=== PATIENT | female | born 1955 | race Two or more races ===

== ENCOUNTER 2022-05-31 14:08 | Emergency (ER) | payer OTHER, MEDICAID ==
[~2022-05-31] VITALS: Ht 152.4 cm; Wt 81.8 kg
[2022-05-31 14:09] VITALS: BP 132/86
[2022-05-31] MEDS ORDERED: NEOM0.1O7 OP (17:48)
== END 2022-05-31 19:12 | disposition home or self-care (01) ==
LOC: ER 14:14
DX: H00.015 Hordeolum externum left lower eyelid (principal)

== ENCOUNTER → 2022-08-03 | Outpatient (CLI) | payer OTHER, MEDICAID ==
[~2022-08-03] MED LIST: NEOM0.1O7 OP
== END | disposition home or self-care (01) ==
LOC: XYW 09:13
PROVIDERS: ATTEND Student in an Organized Health Care Education/Training Program
DX: L60.0 Ingrowing nail (principal)
CPT/HCPCS: 93925

== ENCOUNTER 2022-10-18 20:45 | Emergency (ER) | payer OTHER, MEDICAID ==
[~2022-10-18] VITALS: Ht 144.8 cm; Wt 80.0 kg
[2022-10-18] MEDS ORDERED: ACET-1158 PO (22:45)
[2022-10-18] MEDS ORDERED: AZIT250T9 PO (22:45)
[2022-10-18] MEDS ORDERED: PRED20TA2 PO (22:45)
[2022-10-18 23:45] VITALS: BP 137/78
== END 2022-10-18 23:45 | disposition home or self-care (01) ==
LOC: ER 20:45
DX: J06.9 Acute upper respiratory infection, unspecified (principal); E78.5 Hyperlipidemia, unspecified; I10 Essential (primary) hypertension; Z20.822 Contact with and (suspected) exposure to COVID-19
CPT/HCPCS: 36415; 71045; 87426; 87804

== ENCOUNTER 2023-05-03 17:02 | Emergency (ER) | payer OTHER, MEDICAID ==
[~2023-05-03] VITALS: Ht 149.9 cm; Wt 80.9 kg
[~2023-05-03 17:02] MED LIST changes: +ACET500T58 PO; +AZIT-43 PO; +PRED20TA2 PO
[2023-05-03 17:18] VITALS: BP 115/49; PULSE 67; RESP 20; TEMP 98.5
[2023-05-03] MEDS ORDERED: ACET500T58 PO (20:37)
[2023-05-03] MEDS ORDERED: AMOX875T4 PO (20:37)
[2023-05-03 20:41] VITALS: O2SAT 96
[2023-05-03] MEDS ORDERED: cefTRIAXone SOD 1,000 MG VL IM ONE (20:45)
[2023-05-03] MEDS ORDERED: ACETAMINOPHEN 325 MG TAB PO ONE (20:45)
== END 2023-05-03 21:49 | disposition home or self-care (01) ==
LOC: ER 17:02
DX: L60.0 Ingrowing nail (principal); I10 Essential (primary) hypertension; E78.5 Hyperlipidemia, unspecified; Z98.890 Other specified postprocedural states; Z79.899 Other long term (current) drug therapy
CPT/HCPCS: 96372; 99283; J0696

== ENCOUNTER 2024-04-13 12:38 | Emergency (ER) | payer OTHER, MEDICAID ==
[~2024-04-13] VITALS: Ht 157.5 cm; Wt 81.6 kg
[~2024-04-13 12:38] MED LIST changes: +AMOX875T4 PO
[2024-04-13 14:53] VITALS: BP 137/79; PULSE 72; RESP 15; TEMP 98.1; O2SAT 96
[2024-04-13] MEDS: ACETAMINOPHEN 500 MG TAB PO ONE (15:01)
[2024-04-13] MEDS ORDERED: ACET-1080 PO (15:02)
== END 2024-04-13 15:22 | disposition home or self-care (01) ==
LOC: ER 12:38
DX: S00.531A Contusion of lip, initial encounter (principal); I10 Essential (primary) hypertension; E78.5 Hyperlipidemia, unspecified; Z98.890 Other specified postprocedural states; Z79.899 Other long term (current) drug therapy; W22.8XXA Striking against or struck by other objects, initial encounter; Y93.89 Activity, other specified; Y92.098 Other place in other non-institutional residence as the place of occurrence of the external cause; Y99.8 Other external cause status